=== PATIENT | female | born 1955 | race Caucasian/White ===

== ENCOUNTER 2022-06-19 06:33 | Outpatient (CLI) | payer MEDICARE, SELFPAY ==
--- NOTE | ~2022-06-19 | MR_ITS ---
EXAMINATION: MR knee LT wo con DATE: 06/19/2022 07:19 INDICATION: Chronic left knee pain. Unfused meniscal tear. TECHNIQUE: Magnetic resonance imaging (MRI) of the left knee was performed without intravenous contra st. Sequences included coronal PD-weighted FSE, coronal PD-weighted FS FSE, sagittal T2-weighted FSE , sagittal PD-weighted FS FSE and axial PD weighted fat saturated FSE. COMPARISON: None. FINDINGS: Medial compartment: Small longitudinal vertical tear extending to the inferior articular surface at the junction of the b elisa and posterior horn of the medial meniscus. Small region of deep chondral fissuring along the late ral aspect of the anterior weightbearing medial femoral condyle with minimal underlying regularity to the articular cortex. Remaining articular cartilage is normal. Lateral compartment: Lateral meniscus is normal. Articular cartilage is normal. Patellofemoral compartment: Deep chondral fissuring with underlying subarticular cystlike and edema-like marrow signal change at the lateral margin of the lateral patellar facet. Additional deep chondral fissuring with minimal ass ociated edema-like marrow signal change at the inferior aspect of the medial trochlea. Ligaments and tendons: Anterior and posterior cruciate ligaments are normal. The medial collateral ligament and fibular estelle ateral ligament complex are normal. The extensor mechanism is normal. The visualized medial and later al hamstring tendons as well as the iliotibial band are normal. Fluid: Physiologic amount of fluid in the joint space. No loose osteochondral bodies identified. Osseous/other: Bone alignment is normal. No fracture or pathologic marrow replacing process. IMPRESSION: 1. Small longitudinal vertical tear at the junction of the body and posterior horn of the medial meni scus. 2. 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 Reviewed, dictated and finalized at location B. IMPRESSION: 1. Small longitudinal vertical tear at the junction of the body and posterior h orn of the medial meniscus. 2. Mild osteoarthritis with small regions of high-grade chondromalacia at the m edial and patellofemoral compartments.
== END 2022-06-19 06:34 | disposition home or self-care (01) ==
LOC: ANHIMG 06:42
PROVIDERS: PCP Family Medicine; Visit Provider Orthopaedic Surgery
DX: M17.12 Unilateral primary osteoarthritis, left knee (principal); S83.242A Other tear of medial meniscus, current injury, left knee, initial encounter; X58.XXXA Exposure to other specified factors, initial encounter
CPT/HCPCS: 73721